=== PATIENT | male | born 1960 | race African-American/Black ===

== ENCOUNTER 2018-09-06 14:10 | Emergency (ER) | payer SELFPAY ==
[2018-09-06] MEDS ORDERED: ALBUTEROL 2.5 MG/3 ML NEB SOL ONE (15:03)
[2018-09-06] MEDS ORDERED: IPRATROPIUM BROM 0.5MG/2.5ML ONE (15:04)
[2018-09-06] MEDS ORDERED: predniSONE 20 MG TAB ONE (15:04)
--- NOTE | 2018-09-06 15:32 | RAD REPORT ---
EXAM DESCRIPTION: Naif Burrell And Renaldo (2 Views)09/06/2018 3:24 pm CLINICAL HISTORY: Cough COMPARISON: September 2017 FINDINGS: The lungs are hyperaerated. The lungs appear clear of acute infiltrate. The heart is normal size IMPRESSION: No acute abnormalities displayed
--- NOTE | 2018-09-06 16:56 | ER ---
Nurse's Notes [facility] Name: Leslye Salgado Age: 58 yrs Sex: Male : 1960 Arrival Date: 09/06/2018 Time: 14:12 Bed 7 Private MD: Diagnosis: Unspecified asthma with (acute) exacerbation Presentation: 09/06 14:31 Presenting complaint: Patient states: SOB, congestion, and cough that began yesterday aa5 and got worse today. Transition of care: patient was not received from another setting of care. Onset of symptoms was August 2018. Risk Assessment: Do you want to hurt yourself or someone else? Patient reports no desire to harm self or others. Initial Sepsis Screen: Does the patient meet any 2 criteria? No. Patient's initial sepsis screen is negative. Does the patient have a suspected source of infection? No. Patient's initial sepsis screen is negative. Care prior to arrival: None. 14:31 Method Of Arrival: Ambulatory aa5 14:31 Acuity: ANGIE 3 aa5 Historical: - Allergies: 14:32 No Known Allergies; aa5 - Home Meds: 14:32 Albuterol Inhl [Active]; Albuterol Inhl [Active]; aa5 - PMHx: 14:32 Asthma; aa5 - PSHx: 14:32 cheek reconstruction; aa5 - Immunization history:: Pneumococcal vaccine is not up to date, Flu vaccine is not up to date. - Social history:: Smoking status: Patient uses tobacco products, smokes one pack cigarettes per day. - Ebola Screening: : No symptoms or risks identified at this time. Screenin:44 Abuse screen: Denies threats or abuse. Denies injuries from another. Nutritional sg screening: No deficits noted. Tuberculosis screening: No symptoms or risk factors identified. Never had TB. Fall Risk None identified. Assessment: 15:20 General: Appears in no apparent distress. comfortable, well groomed, well developed, sg well nourished, Behavior is calm, cooperative, appropriate for age. Pain: Denies pain. Neuro: No deficits noted. Cardiovascular: Heart tones S1 S2 present Patient's skin is warm and dry. Chest pain is denied. Respiratory: Reports shortness of breath on exertion Airway is patent Respiratory effort is even, unlabored, Respiratory pattern is regular, symmetrical, Breath sounds with wheezes bilaterally. GI: No deficits noted. Abdomen is flat, non-distended. : No signs and/or symptoms were reported regarding the genitourinary system. EENT: Nares are clear bilaterally Oral mucosa is moist. Throat is pink. Derm: Skin is intact, is healthy with good turgor, Skin is dry, Skin is normal, Skin temperature is warm. Musculoskeletal: No signs and/or symptoms reported regarding the musculoskeletal system. Vital Signs: 14:32 BP 178 / 116; Pulse 93; Resp 18 S; Temp 98.5(O); Pulse Ox 97% on R/A; Weight 70.31 kg aa5 (R); Height 6 ft. 2 in. (187.96 cm) (R); Pain 0/10; 15:44 BP 160 / 92; Pulse 90; Resp 17; Temp 98.1; Pulse Ox 98% on R/A; Pain 0/10; sg 14:32 Body Mass Index 19.90 (70.31 kg, 187.96 cm) aa5 ED Course: 14:12 Patient arrived in ED. mr 14:32 Triage completed. aa5 14:32 Arm band placed on. aa5 14:48 Ludwig Morris NP is PHCP. pm1 14:48 Tree Gilbert MD is Attending Physician. pm1 14:55 Douglas Lake, RN is Primary Nurse. sg 15:05 Patient moved to radiology via wheelchair. jb2 15:15 X-ray completed. Patient tolerated procedure well. Patient moved back from radiology. jb2 15:22 Chest Pa And Lat (2 Views) XRAY In Process Unspecified. EDMS 15:39 Flu and/or RSV swab sent to lab. sg Administered Medications: 15:09 Drug: predniSONE 60 mg Route: PO; iw 15:45 Follow up: Response: No adverse reaction sg 15:30 Drug: Albuterol - atroVENT (3:1) (2.5 mg - 0.5 mg) 3 ml Route: Nebulizer; sg 16:20 Follow up: Response: No adverse reaction sg Outcome: 16:55 Discharge ordered by . pm1 17:07 Patient left the ED. iw Signatures: Dispatcher [employer] EDMS Douglas Lake RN RN Lesa Morel Jesse jb2 Karen Parkinson RN RN iw Tori Messer RN RN aa5 Ludwig Morris, WINDOW DRESSER WINDOW DRESSER pm1
--- NOTE | 2018-09-06 16:56 | EDPHYS ---
Physician Documentation [facility] Name: Leslye Salgado Age: 58 yrs Sex: Male : 1960 Arrival Date: 09/06/2018 Time: 14:12 Bed 7 Private MD: ED Physician Tree Gilbert HPI: 09/06 15:30 This 58 yrs old Black Male presents to ER via Ambulatory with complaints of Asthma pm1 Exacerbation. 15:30 The patient presents to the emergency department with wheezing, Current therapy: pm1 steroid inhaler, Ran out of his albuterol rescue inhaler 1 week ago, the patient was reported to have shortness of breath. Onset: The symptoms/episode began/occurred 2 day(s) ago. Modifying factors: The symptoms are alleviated by nothing, the symptoms are aggravated by nothing. Associated signs and symptoms: Pertinent negatives:. Severity of symptoms: in the emergency department the symptoms are worse. The patient has experienced similar episodes in the past, several times. The patient has not recently seen a physician. patient unable to use his rescue inhaler for the past 1 week because he ran out. Historical: - Allergies: 14:32 No Known Allergies; aa5 - Home Meds: 14:32 Albuterol Inhl [Active]; Albuterol Inhl [Active]; aa5 - PMHx: 14:32 Asthma; aa5 - PSHx: 14:32 cheek reconstruction; aa5 - Immunization history:: Pneumococcal vaccine is not up to date, Flu vaccine is not up to date. - Social history:: Smoking status: Patient uses tobacco products, smokes one pack cigarettes per day. - Ebola Screening: : No symptoms or risks identified at this time. ROS: 15:30 Constitutional: Negative for fever, chills, and weight loss, Eyes: Negative for injury, pm1 pain, redness, and discharge, ENT: Negative for injury, pain, and discharge, Neck: Negative for injury, pain, and swelling, Cardiovascular: Negative for chest pain, palpitations, and edema. 15:30 Abdomen/GI: Negative for abdominal pain, nausea, vomiting, diarrhea, and constipation, Back: Negative for injury and pain, : Negative for injury, bleeding, discharge, and swelling, MS/Extremity: Negative for injury and deformity, Skin: Negative for injury, rash, and discoloration, Neuro: Negative for headache, weakness, numbness, tingling, and seizure. 15:30 Respiratory: Positive for cough, shortness of breath, wheezing. Exam: 15:30 Constitutional: This is a well developed, well nourished patient who is awake, alert, pm1 and in no acute distress. Head/Face: Normocephalic, atraumatic. Eyes: Pupils equal round and reactive to light, extra-ocular motions intact. Lids and lashes normal. Conjunctiva and sclera are non-icteric and not injected. Cornea within normal limits. Periorbital areas with no swelling, redness, or edema. ENT: Nares patent. No nasal discharge, no septal abnormalities noted. Tympanic membranes are normal and external auditory canals are clear. Oropharynx with no redness, swelling, or masses, exudates, or evidence of obstruction, uvula midline. Mucous membranes moist. Neck: Trachea midline, no thyromegaly or masses palpated, and no cervical lymphadenopathy. Supple, full range of motion without nuchal rigidity, or vertebral point tenderness. No Meningismus. Chest/axilla: Normal chest wall appearance and motion. Nontender with no deformity. No lesions are appreciated. Cardiovascular: Regular rate and rhythm with a normal S1 and S2. No gallops, murmurs, or rubs. Normal PMI, no JVD. No pulse deficits. 15:30 Abdomen/GI: Soft, non-tender, with normal bowel sounds. No distension or tympany. No guarding or rebound. No evidence of tenderness throughout. Back: No spinal tenderness. No costovertebral tenderness. Full range of motion. Skin: Warm, dry with normal turgor. Normal color with no rashes, no lesions, and no evidence of cellulitis. MS/ Extremity: Pulses equal, no cyanosis. Neurovascular intact. Full, normal range of motion. 15:30 Respiratory: the patient does not display signs of respiratory distress, Respirations: normal, Breath sounds: wheezing: expiratory is heard diffusely. 15:30 Neuro: Orientation: is normal, Motor: is normal, moves all fours, Sensation: is normal, no obvious gross deficits. Vital Signs: 14:32 BP 178 / 116; Pulse 93; Resp 18 S; Temp 98.5(O); Pulse Ox 97% on R/A; Weight 70.31 kg aa5 (R); Height 6 ft. 2 in. (187.96 cm) (R); Pain 0/10; 15:44 BP 160 / 92; Pulse 90; Resp 17; Temp 98.1; Pulse Ox 98% on R/A; Pain 0/10; sg 14:32 Body Mass Index 19.90 (70.31 kg, 187.96 cm) aa5 MDM: 14:52 Patient medically screened. pm1 16:53 Data reviewed: vital signs. Data interpreted: Pulse oximetry: on room air is 98 %. pm1 Interpretation: normal. Counseling: I had a detailed discussion with the patient and/or guardian regarding: the historical points, exam findings, and any diagnostic results supporting the discharge/admit diagnosis, lab results, radiology results, the need for outpatient follow up, to return to the emergency department if symptoms worsen or persist or if there are any questions or concerns that arise at home. 16:53 ED course: Patient feels "great" after breathing treatment and ready to go home. pm1 Requested refill of his rescue inhaler. 09/06 15:05 Order name: Flu pm1 09/06 15:05 Order name: Influenza Screen (A ; Complete Time: 16:52 EDMS 09/06 14:54 Order name: Chest Pa And Lat (2 Views) XRAY; Complete Time: 15:43 pm1 Administered Medications: 15:09 Drug: predniSONE 60 mg Route: PO; iw 15:45 Follow up: Response: No adverse reaction sg 15:30 Drug: Albuterol - atroVENT (3:1) (2.5 mg - 0.5 mg) 3 ml Route: Nebulizer; sg 16:20 Follow up: Response: No adverse reaction sg Disposition: 09/07 11:42 Co-signature as Attending Physician, Tree Gilbert MD. gs Disposition: 09/06/18 16:55 Discharged to Home. Impression: Unspecified asthma with (acute) exacerbation. - Condition is Stable. - Discharge Instructions: Asthma, Adult, How to Use an Inhaler. - Prescriptions for Medrol (Lenny) 4 mg Oral Tablets, Dose Pack - take 1 tablet by ORAL route as directed - follow package instructions; 1 packet. Albuterol Sulfate 90 mcg/actuation - inhale 1-2 puff by INHALATION route every 4-6 hours; 1 Inhaler. - Medication Reconciliation Form, Thank You Letter, Antibiotic Education form. - Follow up: Emergency Department; When: As needed; Reason: Worsening of condition. Follow up: Private Physician; When: 2 - 3 days; Reason: Recheck today's complaints, Continuance of care, Re-evaluation by your physician. - Problem is new. - Symptoms have improved. Signatures: Dispatcher [employer] EDMS Douglas Lake RN RN sg Karen Parkinson RN RN iw Tori Messer RN RN aa5 Ludwig Morris, OPTICIANRY TEACHER OPTICIANRY TEACHER pm1 Tree Gilbert MD MD gs Corrections: (The following items were deleted from the chart) 09/06 17:07 16:55 09/06/2018 16:55 Discharged to Home. Impression: Unspecified asthma with (acute) iw exacerbation. Condition is Stable. Forms are Medication Reconciliation Form, Thank You Letter, Antibiotic Education, Prescription Opioid Use. Follow up: Emergency Department; When: As needed; Reason: Worsening of condition. Follow up: Private Physician; When: 2 - 3 days; Reason: Recheck today's complaints, Continuance of care, Re-evaluation by your physician. Problem is new. Symptoms have improved. pm1
[2018-09-06 17:20] VITALS: BP 160/92; TEMP 98.1; O2SAT 98
== END 2018-09-06 17:07 | disposition home or self-care (01) ==
LOC: ER 14:10
DX: J45.901 Unspecified asthma with (acute) exacerbation (principal); F17.210 Nicotine dependence, cigarettes, uncomplicated; Z79.899 Other long term (current) drug therapy
CPT/HCPCS: 71046; 87804; 94640; 99284; J7512